=== PATIENT | female | born 1985 | race Caucasian/White ===

== ENCOUNTER 2023-02-22 05:25 | Emergency (ER) | payer MEDICAID ==
[~2023-02-22] VITALS: Ht 160 cm; Wt 84.1 kg
[2023-02-22 05:28] VITALS: BP 137/93
[2023-02-22] MEDS ORDERED: LIDOcaine/epinephrine/tetracaine TOPICAL sol 3 ML syringe TOP ONE ×2 (06:50→07:10)
[2023-02-22] MEDS ORDERED: TETanus/Pertussis (Acell)/Diphther VAC/PF (Tdap-Adult) 0.5ml syringe IMVAC ONE (07:15)
[2023-02-22] MEDS ORDERED: bacitracin 15gm ointment TP ONE (07:15)
[2023-02-22] MEDS ORDERED: LIDOcaine 1%/PF 5ML 10 MG/ML VIAL IJ STA (07:56)
== END 2023-02-22 08:44 | disposition home or self-care (01) ==
LOC: ER 05:26
DX: S61.412A Laceration without foreign body of left hand, initial encounter (principal); W26.8XXA Contact with other sharp object(s), not elsewhere classified, initial encounter; Y93.89 Activity, other specified; Y92.89 Other specified places as the place of occurrence of the external cause; Y99.8 Other external cause status
CPT/HCPCS: 12002; 90471; 90715; 99283; A6258; J3490; A6449